=== PATIENT | male | born 1955 | race Caucasian/White ===

== ENCOUNTER 2019-09-10 06:55 | Emergency (ER) | payer MEDICAID ==
[~2019-09-10] VITALS: Ht 185.4 cm; Wt 50.6 kg
[~2019-09-10 06:55] MED LIST: NO HOME MEDS; PERM60CR4 TP; TRAM50TA2 PO
[2019-09-10 06:58] VITALS: BP 128/67
[2019-09-10] MEDS ORDERED: diphenhydrAMINE 25mg capsule PO ONE (07:10)
[2019-09-10] MEDS ORDERED: PERM60CR19 TP (07:12)
[2019-09-10] MEDS ORDERED: PRED20TA PO (07:12)
[2019-09-10] MEDS ORDERED: DIPH25CA83 PO (07:16)
== END 2019-09-10 07:39 | disposition home or self-care (01) ==
LOC: ER 06:56
DX: B89 Unspecified parasitic disease (principal); I25.10 Atherosclerotic heart disease of native coronary artery without angina pectoris; I25.2 Old myocardial infarction; F12.90 Cannabis use, unspecified, uncomplicated; F10.99 Alcohol use, unspecified with unspecified alcohol-induced disorder; Z60.2 Problems related to living alone; Z59.0 Homelessness; Z98.890 Other specified postprocedural states; Z79.899 Other long term (current) drug therapy; Y90.9 Presence of alcohol in blood, level not specified
CPT/HCPCS: 99283; Q0163

== ENCOUNTER 2019-10-12 05:06 | Emergency (ER) | payer MEDICAID ==
[~2019-10-12] VITALS: Ht 185.4 cm; Wt 72.7 kg
[~2019-10-12 05:06] MED LIST changes: +DIPH25CA83 PO
[2019-10-12 05:14] VITALS: BP 142/82
[2019-10-12] MEDS ORDERED: diphenhydrAMINE 25mg capsule PO ONE (05:15)
[2019-10-12] MEDS ORDERED: DOXY100C43 PO (05:17)
[2019-10-12] MEDS ORDERED: PERM60CR4 TOP (05:17)
[2019-10-12] MEDS ORDERED: ALBU8.5H8 IH (05:17)
== END 2019-10-12 05:29 | disposition home or self-care (01) ==
LOC: ER 05:07
DX: S30.861A Insect bite (nonvenomous) of abdominal wall, initial encounter (principal); S20.369A Insect bite (nonvenomous) of unspecified front wall of thorax, initial encounter; S60.562A Insect bite (nonvenomous) of left hand, initial encounter; S60.561A Insect bite (nonvenomous) of right hand, initial encounter; J20.9 Acute bronchitis, unspecified; I25.10 Atherosclerotic heart disease of native coronary artery without angina pectoris; I25.2 Old myocardial infarction; F12.90 Cannabis use, unspecified, uncomplicated; Z60.2 Problems related to living alone; Z59.0 Homelessness; Z98.890 Other specified postprocedural states; Z72.89 Other problems related to lifestyle; Z79.899 Other long term (current) drug therapy; W57.XXXA Bitten or stung by nonvenomous insect and other nonvenomous arthropods, initial encounter; Y93.89 Activity, other specified; Y92.89 Other specified places as the place of occurrence of the external cause; Y99.8 Other external cause status
CPT/HCPCS: 99283; Q0163

== ENCOUNTER 2023-08-13 12:14 | Inpatient (IN) | payer MEDICARE, MEDICAID ==
[~2023-08-13] VITALS: Ht 185.4 cm; Wt 75.0 kg
[~2023-08-13 12:14] MED LIST changes: +ALBU8.5H17 IH; +PERM60CR4 TOP
[2023-08-13] MEDS ORDERED: ondansetron 4mg rapidly disintigrating tab PO ONE (14:50)
[2023-08-13] MEDS ORDERED: azithromycin/NS 500mg/250ml 250 ML IV STA (15:34)
[2023-08-13] MEDS ORDERED: CefTRIAXone 2gm/D5W 50ml BAG 50 ML IV ONE (15:35)
[2023-08-13] MEDS ORDERED: normal saline 1000ML IV soln IVB ONE (15:35)
[2023-08-13] MEDS ORDERED: acetaminophen 325mg tablet PO ONE (15:40)
[2023-08-13] MEDS ORDERED: magnesium 2GM in 50ml NS 50 ML IV ONE (16:40)
[2023-08-13 17:03] LABS: BASOPHILS % (AUTO) 0.1 % (0-1); EOSINOPHILS % (AUTO) 0 % (0-6); LYMPHOCYTES # (AUTO) 0.4 X10'3 (1.1-4.8); MEAN CORPUSCULAR VOLUME 93.5 FL (78-98); MEAN PLATELET VOLUME 7.6 FL (7.4-10.4)
[2023-08-13 17:04] LABS: HEMATOCRIT 39.3 % (42.0-52.0); HEMOGLOBIN 12.6 g/dl (14.0-17.9); LYMPHOCYTES % (AUTO) 1.8 % (21-51); MEAN CORPUSCULAR HEMOGLOBIN 29.9 PG (27.0-31.0); MONOCYTES # (AUTO) 0.4 X10'3 (0-0.9); NEUTROPHILS # (AUTO) 20.7 X10'3 (1.8-7.7); NEUTROPHILS % (AUTO) 96.1 % (42-75); PLATELET COUNT 252 X10'3 (140-440); WHITE BLOOD COUNT 21.5 X10'3 (4.5-11.0)
[2023-08-13 17:06] LABS: ALANINE AMINOTRANSFERASE 12 U/L (12-78); ALBUMIN 1.9 G/DL (3.4-5.0); ALBUMIN/GLOBULIN RATIO 0.5 (1.1-1.5); ALKALINE PHOSPHATASE 56 IU/L (46-116); ANION GAP 7 (8-16); ASPARTATE AMINO TRANSFERASE 15 U/L (10-37); BILIRUBIN,TOTAL 0.4 MG/DL (0.1-1.0); BLOOD UREA NITROGEN 48 MG/DL (7-18); BUN/CREATININE RATIO 21.1 (10.0-20.0); CHLORIDE 100 MMOL/L (99-107); CREATININE 2.27 MG/DL (0.60-1.10); GLUCOSE 121 MG/DL (70-104); POTASSIUM 4.3 MMOL/L (3.5-5.1); SODIUM 135 MMOL/L (135-145); TOTAL CARBON DIOXIDE 27.9 MMOL/L (24-32); TOTAL PROTEIN 5.7 G/DL (6.4-8.2); eCRCL 34 ML/MIN; eGFR 29 ML/MIN
[2023-08-13 17:12] LABS: MAGNESIUM 1.9 MG/DL (1.5-2.4); PRO BRAIN NATRIURETIC PEPTIDE 2122 PG/ML (0-125)
[2023-08-13 17:35] LABS: TOTAL CELLS COUNTED 100
[2023-08-13] MEDS ORDERED: apixaban 2.5mg tablet PO SCH (17:35)
[2023-08-13] MEDS ORDERED: diltiazem 30mg tablet PO ONE (17:35)
[2023-08-13] MEDS ORDERED: diltiazem 5mg/ml 5ml inj. IV ONE (17:35)
[2023-08-13 17:37] LABS: ANISOCYTOSIS 1+; PLATELET ESTIMATE NORMAL
[2023-08-13] MEDS ORDERED: magnesium hydroxide 30ml (MOM) UD suspension PO PRN (18:05)
[2023-08-13] MEDS ORDERED: potassium Cl 20 mEq SR tablet PO PRN ×2 (18:05)
[2023-08-13] MEDS ORDERED: HYDROmorphone inj. 0.5 MG/0.5 ML DISP.SYRIN IV PRN (18:05)
[2023-08-13] MEDS ORDERED: ondansetron/PF 4mg/2ml inj IV PRN (18:05)
[2023-08-13] MEDS ORDERED: potassium Cl 40MEQ/1/2NS 520ml 520 ML IV PRN (18:05)
[2023-08-13] MEDS ORDERED: mag hydrox/Alum hydrox/simeth 30ml oral suspension PO PRN (18:05)
[2023-08-13] MEDS ORDERED: HYDROmorphone/PF 0.2 MG/ML SYRINGE IV PRN (18:05)
[2023-08-13] MEDS ORDERED: magnesium 2GM in 50ml NS 50 ML IV PRN (18:05)
[2023-08-13] MEDS ORDERED: acetaminophen 325mg tablet PO PRN ×2 (18:05)
[2023-08-13] MEDS ORDERED: magnesium Cl slow-release 64mg tablet PO PRN (18:05)
[2023-08-13] MEDS ORDERED: HYDROcodone/acetaminophen 5mg/325mg tablet PO PRN (18:05)
[2023-08-13] MEDS ORDERED: magnesium 4gm in 100ml NS 100 ML IV PRN (18:05)
[2023-08-13] MEDS ORDERED: ondansetron 4mg rapidly disintigrating tab PO PRN (18:05)
[2023-08-13] MEDS ORDERED: diltiazem-D5W 125mg/125ml 125 ML IV SCH ×2 (18:05→18:25)
[2023-08-13] MEDS ORDERED: diltiazem-NS 100mg/100ml 125 ML IV SCH (18:25)
[2023-08-13] MEDS ORDERED: LORazepam 1 MG tablet PO PRN (18:45)
[2023-08-13] MEDS ORDERED: nicotine 21mg patch - 24 hr TD ONE (18:45)
[2023-08-13 19:02] LABS: APTT 39 SECONDS (22-32); INR 1.1 INR
[2023-08-13 19:10] LABS: CHOLESTEROL 83 MG/DL (0-200); HDL CHOLESTEROL 41 MG/DL (35-60); LDL CHOLESTEROL 15 MG/DL (50-100); THYROID STIMULATING HORMONE 2.68 ulU/ml (0.34-4.50); TRIGLYCERIDES 41 MG/DL (20-135)
[2023-08-13] MEDS: docusate sod 100mg capsule PO SCH (20:00)
[2023-08-13] MEDS: K and/or MAG REPLACEMENT MC SCH (20:00)
[2023-08-13] MEDS ORDERED: temazepam 15mg capsule PO PRN (21:00)
[2023-08-14] VITALS (12 sets, daily range): BP systolic 96–149; BP diastolic 51–88; PULSE 86–155; RESP 14–23; TEMP 97.8–98.6; O2SAT 94–100
[2023-08-14] MEDS ORDERED: diltiazem 5mg/ml 5ml inj. IV ONE ×2 (01:05→08:10)
[2023-08-14] MEDS ORDERED: apixaban 5mg tablet PO SCH (08:00)
[2023-08-14] MEDS ORDERED: enoxaparin 80mg/0.8ml syringe SUBCUT SCH (08:00)
[2023-08-14] MEDS: K and/or MAG REPLACEMENT MC SCH ×2 (08:00→19:01)
[2023-08-14 08:15] LABS: HEMOGLOBIN 12.4 g/dl (14.0-17.9); LYMPHOCYTES # (AUTO) 0.5 X10'3 (1.1-4.8); LYMPHOCYTES % (AUTO) 2.7 % (21-51); MONOCYTES # (AUTO) 0.4 X10'3 (0-0.9)
[2023-08-14 08:18] LABS: BASOPHILS % (AUTO) 0.2 % (0-1); EOSINOPHILS % (AUTO) 0.2 % (0-6); HEMATOCRIT 37.3 % (42.0-52.0); MEAN CORPUSCULAR HEMOGLOBIN 30.9 PG (27.0-31.0); MEAN CORPUSCULAR HGB CONC 33.1 g/dL (33.0-36.5); MEAN CORPUSCULAR VOLUME 93.2 FL (78-98); MEAN PLATELET VOLUME 8.3 FL (7.4-10.4); MONOCYTES % (AUTO) 1.9 % (2-12); NEUTROPHILS # (AUTO) 18.8 X10'3 (1.8-7.7); PLATELET COUNT 239 X10'3 (140-440); WHITE BLOOD COUNT 19.8 X10'3 (4.5-11.0)
[2023-08-14 08:21] LABS: ALANINE AMINOTRANSFERASE 13 U/L (12-78); ALBUMIN 1.9 G/DL (3.4-5.0); ALBUMIN/GLOBULIN RATIO 0.5 (1.1-1.5); ALKALINE PHOSPHATASE 86 IU/L (46-116); ANION GAP 6 (8-16); ASPARTATE AMINO TRANSFERASE 17 U/L (10-37); BILIRUBIN,TOTAL 0.4 MG/DL (0.1-1.0); BLOOD UREA NITROGEN 41 MG/DL (7-18); CALCIUM 8.5 MG/DL (8.5-10.1); CHLORIDE 102 MMOL/L (99-107); CREATININE 1.52 MG/DL (0.60-1.10); GLUCOSE 158 MG/DL (70-104); MAGNESIUM 2.6 MG/DL (1.5-2.4); POTASSIUM 3.9 MMOL/L (3.5-5.1); SODIUM 134 MMOL/L (135-145); TOTAL CARBON DIOXIDE 25.6 MMOL/L (24-32); TOTAL PROTEIN 6.1 G/DL (6.4-8.2); eCRCL 50 ML/MIN; eGFR 46 ML/MIN
[2023-08-14] MEDS: azithromycin/NS 500mg/250ml 250 ML IV SCH (09:27)
[2023-08-14] MEDS: docusate sod 100mg capsule PO SCH ×2 (09:27→19:00)
[2023-08-14] MEDS: CefTRIAXone/D5W-Rocephin 1gm 50 ML IV SCH (09:27)
[2023-08-14] MEDS: nicotine 21mg patch - 24 hr TD SCH (09:28)
[2023-08-14] MEDS: enoxaparin 30mg/0.3ml syringe SUBCUT SCH ×2 (09:28→19:00)
[2023-08-14] MEDS: diltiazem 30mg tablet PO SCH ×2 (09:29→13:36)
[2023-08-14] MEDS: enoxaparin 40mg/0.4ml syringe SQ SCH ×2 (09:29→19:01)
[2023-08-14 10:03] LABS: BILIRUBIN,URINE NEGATIVE (Neg); CLARITY,URINE SLIGHTLY CLOUDY (Clear); COLOR,URINE YELLOW (Yellow); GLUCOSE, URINE NEGATIVE (Neg); KETONES,URINE NEGATIVE (Neg); LEUKOCYTE ESTERASE ,URINE NEGATIVE (Neg); NITRITES, URINE NEGATIVE (Neg); OCCULT BLOOD,URINE TRACE-INTACT (Neg); PH,URINE 5.5 (4.8-8.0); PROTEIN,URINE TRACE mg/dl (Neg); UROBILINOGEN,URINE 0.2 E.U/dL (0.2-1.0)
[2023-08-14 10:19] LABS: UA COLLECTION TYPE CLN CATCH MIDSTREAM
[2023-08-14 10:36] LABS: TOTAL PROTEIN,URINE RANDOM 53.3 MG/DL
[2023-08-14 10:38] LABS: URIC ACID CRYSTALS 3+ /HPF (NEGATIVE)
[2023-08-14 10:44] LABS: BACTERIA,URINE 1+ /HPF (Neg); RBC,URINE 0-2 /HPF (0-2)
[2023-08-14 10:46] LABS: SQUAMOUS EPITHELIAL CELL,UR FEW /LPF (FEW)
[2023-08-14 10:48] LABS: TRANSITIONAL EPI CELLS,URINE FEW /HPF
[2023-08-14 10:49] LABS: MUCUS STRANDS FEW /LPF (Neg)
[2023-08-14 11:02] LABS: COARSE GRANULAR CAST 0-3 /LPF (NEGATIVE); FINE GRANULAR CAST 0-3 /LPF (NEGATIVE)
[2023-08-14] MEDS: HYDROcodone/acetaminophen 10/325mg tab PO PRN ×2 (11:18→18:49)
[2023-08-14 11:22] LABS: UA EOSINOPHILS NO EOS /HPF
[2023-08-14] MEDS ORDERED: diltiazem 30mg tablet PO SCH (20:00)
[2023-08-14] MEDS ORDERED: diltiazem-NS 100mg/100ml 100 ML IV SCH (22:40)
[2023-08-15] VITALS (18 sets, daily range): BP systolic 97–136; BP diastolic 57–89; PULSE 80–124; RESP 16–26; TEMP 97.6–98.2; O2SAT 90–97
[2023-08-15] MEDS: diltiazem-NS 100mg/100ml 100 ML IV SCH ×2 (00:31→13:45)
[2023-08-15] MEDS: azithromycin/NS 500mg/250ml 250 ML IV SCH (07:53)
[2023-08-15] MEDS: docusate sod 100mg capsule PO SCH ×2 (07:53→20:00)
[2023-08-15] MEDS: CefTRIAXone/D5W-Rocephin 1gm 50 ML IV SCH (07:53)
[2023-08-15] MEDS: enoxaparin 30mg/0.3ml syringe SUBCUT SCH ×2 (07:54→22:35)
[2023-08-15] MEDS: nicotine 21mg patch - 24 hr TD SCH (07:54)
[2023-08-15] MEDS: enoxaparin 40mg/0.4ml syringe SQ SCH ×2 (07:54→22:34)
[2023-08-15] MEDS: K and/or MAG REPLACEMENT MC SCH ×2 (08:00→18:37)
[2023-08-15 08:29] LABS: BASOPHILS % (AUTO) 0.1 % (0-1); EOSINOPHILS # (AUTO) 0.1 X10'3 (0-0.9); EOSINOPHILS % (AUTO) 0.6 % (0-6); HEMOGLOBIN 11.4 g/dl (14.0-17.9); LYMPHOCYTES # (AUTO) 0.7 X10'3 (1.1-4.8); LYMPHOCYTES % (AUTO) 4.8 % (21-51); MEAN CORPUSCULAR HEMOGLOBIN 30.6 PG (27.0-31.0); MEAN CORPUSCULAR HGB CONC 32.7 g/dL (33.0-36.5); MEAN CORPUSCULAR VOLUME 93.3 FL (78-98); MONOCYTES % (AUTO) 6.5 % (2-12); NEUTROPHILS # (AUTO) 13.2 X10'3 (1.8-7.7); PLATELET COUNT 225 X10'3 (140-440); RED BLOOD COUNT 3.75 X10'6 (4.70-6.10); RED CELL DISTRIBUTION WIDTH 17.5 % (11.5-14.5); WHITE BLOOD COUNT 15.1 X10'3 (4.5-11.0)
[2023-08-15 08:45] LABS: ALANINE AMINOTRANSFERASE 15 U/L (12-78); ALBUMIN 1.8 G/DL (3.4-5.0); ALBUMIN/GLOBULIN RATIO 0.4 (1.1-1.5); ALKALINE PHOSPHATASE 83 IU/L (46-116); ANION GAP 5 (8-16); ASPARTATE AMINO TRANSFERASE 17 U/L (10-37); BILIRUBIN,TOTAL 0.2 MG/DL (0.1-1.0); BLOOD UREA NITROGEN 30 MG/DL (7-18); BUN/CREATININE RATIO 27.8 (10.0-20.0); CALCIUM 8.7 MG/DL (8.5-10.1); CHLORIDE 101 MMOL/L (99-107); CREATININE 1.08 MG/DL (0.60-1.10); GLUCOSE 129 MG/DL (70-104); MAGNESIUM 2.1 MG/DL (1.5-2.4); SODIUM 135 MMOL/L (135-145); TOTAL CARBON DIOXIDE 28.7 MMOL/L (24-32); TOTAL PROTEIN 6.1 G/DL (6.4-8.2); eCRCL 70 ML/MIN; eGFR 68 ML/MIN
[2023-08-16] VITALS (11 sets, daily range): BP systolic 105–137; BP diastolic 57–71; PULSE 3–102; RESP 18–23; TEMP 97.6–99.3; O2SAT 92–99
[2023-08-16] MEDS: diltiazem-NS 100mg/100ml 100 ML IV SCH (00:39)
[2023-08-16 07:43] LABS: ALANINE AMINOTRANSFERASE 25 U/L (12-78); ALBUMIN 1.8 G/DL (3.4-5.0); ALBUMIN/GLOBULIN RATIO 0.4 (1.1-1.5); ALKALINE PHOSPHATASE 55 IU/L (46-116); ANION GAP 4 (8-16); ASPARTATE AMINO TRANSFERASE 29 U/L (10-37); BILIRUBIN,TOTAL 0.4 MG/DL (0.1-1.0); BLOOD UREA NITROGEN 20 MG/DL (7-18); BUN/CREATININE RATIO 24.7 (10.0-20.0); CALCIUM 8.7 MG/DL (8.5-10.1); CHLORIDE 101 MMOL/L (99-107); CREATININE 0.81 MG/DL (0.60-1.10); GLUCOSE 95 MG/DL (70-104); MAGNESIUM 1.6 MG/DL (1.5-2.4); POTASSIUM 3.9 MMOL/L (3.5-5.1); SODIUM 136 MMOL/L (135-145); TOTAL CARBON DIOXIDE 30.7 MMOL/L (24-32); TOTAL PROTEIN 6.1 G/DL (6.4-8.2); eCRCL 94 ML/MIN; eGFR > 90 ML/MIN
[2023-08-16] MEDS: CefTRIAXone/D5W-Rocephin 1gm 50 ML IV SCH (07:45)
[2023-08-16] MEDS: azithromycin/NS 500mg/250ml 250 ML IV SCH (07:45)
[2023-08-16] MEDS: enoxaparin 40mg/0.4ml syringe SQ SCH (07:46)
[2023-08-16] MEDS: enoxaparin 30mg/0.3ml syringe SUBCUT SCH (07:46)
[2023-08-16] MEDS: nicotine 21mg patch - 24 hr TD SCH (07:46)
[2023-08-16 07:47] LABS: BASOPHILS % (AUTO) 0.4 % (0-1); EOSINOPHILS # (AUTO) 0.1 X10'3 (0-0.9); EOSINOPHILS % (AUTO) 1.1 % (0-6); HEMATOCRIT 33.7 % (42.0-52.0); HEMOGLOBIN 11.4 g/dl (14.0-17.9); LYMPHOCYTES # (AUTO) 0.9 X10'3 (1.1-4.8); LYMPHOCYTES % (AUTO) 11.7 % (21-51); MEAN CORPUSCULAR HEMOGLOBIN 31.4 PG (27.0-31.0); MEAN CORPUSCULAR HGB CONC 33.9 g/dL (33.0-36.5); MEAN CORPUSCULAR VOLUME 92.7 FL (78-98); MEAN PLATELET VOLUME 7.5 FL (7.4-10.4); MONOCYTES # (AUTO) 1.1 X10'3 (0-0.9); MONOCYTES % (AUTO) 13.8 % (2-12); NEUTROPHILS # (AUTO) 5.9 X10'3 (1.8-7.7); PLATELET COUNT 225 X10'3 (140-440); RED BLOOD COUNT 3.63 X10'6 (4.70-6.10); RED CELL DISTRIBUTION WIDTH 16.9 % (11.5-14.5)
[2023-08-16] MEDS: docusate sod 100mg capsule PO SCH ×2 (07:47→20:00)
[2023-08-16] MEDS: K and/or MAG REPLACEMENT MC SCH ×2 (08:00→20:00)
[2023-08-16] MEDS ORDERED: diltiazem 30mg tablet PO ONE (08:20)
[2023-08-16] MEDS: diltiazem 30mg tablet PO SCH ×2 (13:46→20:37)
[2023-08-16] MEDS: HYDROcodone/acetaminophen 10/325mg tab PO PRN ×2 (13:46→20:36)
[2023-08-16] MEDS ORDERED: apixaban 5mg tablet PO SCH (20:00)
[2023-08-16] MEDS: apixaban 5mg tablet PO SCH (20:37)
[2023-08-17 02:00] VITALS: BP 133/63; PULSE 78; RESP 17; TEMP 98.8; O2SAT 93
[2023-08-17] MEDS: diltiazem 30mg tablet PO SCH ×2 (02:43→07:59)
[2023-08-17] MEDS: HYDROcodone/acetaminophen 10/325mg tab PO PRN (02:46)
[2023-08-17 06:00] VITALS: BP 171/63; PULSE 64; RESP 18; TEMP 98; O2SAT 95
[2023-08-17 06:29] LABS: BASOPHILS % (AUTO) 0.5 % (0-1); EOSINOPHILS # (AUTO) 0.2 X10'3 (0-0.9); EOSINOPHILS % (AUTO) 2.4 % (0-6); HEMATOCRIT 37.7 % (42.0-52.0); HEMOGLOBIN 12.3 g/dl (14.0-17.9); LYMPHOCYTES # (AUTO) 1.3 X10'3 (1.1-4.8); LYMPHOCYTES % (AUTO) 14.7 % (21-51); MEAN CORPUSCULAR HEMOGLOBIN 30.3 PG (27.0-31.0); MEAN CORPUSCULAR HGB CONC 32.6 g/dL (33.0-36.5); MEAN CORPUSCULAR VOLUME 93.2 FL (78-98); MEAN PLATELET VOLUME 7.5 FL (7.4-10.4); MONOCYTES # (AUTO) 1.5 X10'3 (0-0.9); NEUTROPHILS # (AUTO) 5.6 X10'3 (1.8-7.7); NEUTROPHILS % (AUTO) 65.4 % (42-75); PLATELET COUNT 293 X10'3 (140-440); RED BLOOD COUNT 4.04 X10'6 (4.70-6.10); RED CELL DISTRIBUTION WIDTH 17.9 % (11.5-14.5); WHITE BLOOD COUNT 8.6 X10'3 (4.5-11.0)
[2023-08-17 07:22] LABS: ALANINE AMINOTRANSFERASE 29 U/L (12-78); ALBUMIN 1.9 G/DL (3.4-5.0); ALBUMIN/GLOBULIN RATIO 0.4 (1.1-1.5); ALKALINE PHOSPHATASE 67 IU/L (46-116); ANION GAP 10 (8-16); ASPARTATE AMINO TRANSFERASE 26 U/L (10-37); BILIRUBIN,TOTAL 0.4 MG/DL (0.1-1.0); BLOOD UREA NITROGEN 16 MG/DL (7-18); BUN/CREATININE RATIO 21.1 (10.0-20.0); CALCIUM 9.3 MG/DL (8.5-10.1); CHLORIDE 97 MMOL/L (99-107); CREATININE 0.76 MG/DL (0.60-1.10); GLUCOSE 103 MG/DL (70-104); MAGNESIUM 2.1 MG/DL (1.5-2.4); POTASSIUM 4.2 MMOL/L (3.5-5.1); SODIUM 133 MMOL/L (135-145); TOTAL CARBON DIOXIDE 26.3 MMOL/L (24-32); TOTAL PROTEIN 6.8 G/DL (6.4-8.2); eCRCL 100 ML/MIN; eGFR > 90 ML/MIN
[2023-08-17] MEDS: nicotine 21mg patch - 24 hr TD SCH (07:58)
[2023-08-17] MEDS: docusate sod 100mg capsule PO SCH (07:59)
[2023-08-17] MEDS: K and/or MAG REPLACEMENT MC SCH (08:00)
[2023-08-17] MEDS: apixaban 5mg tablet PO SCH (08:00)
[2023-08-17] MEDS: azithromycin/NS 500mg/250ml 250 ML IV SCH (08:01)
[2023-08-17 08:44] VITALS: RESP 18; O2SAT 95
== END 2023-08-17 10:26 | disposition left against medical advice (07) | DRG 871 ==
LOC: ER 12:15 → ED HOLD 18:10 → EDBEDREQ 20:21 → PCU 3S 23:10
PROVIDERS: ADMIT Family Medicine; ATTEND Family Medicine
DX: A41.9 Sepsis, unspecified organism (principal); E43 Unspecified severe protein-calorie malnutrition; J18.9 Pneumonia, unspecified organism; J44.0 Chronic obstructive pulmonary disease with (acute) lower respiratory infection; N17.9 Acute kidney failure, unspecified; M48.54XA Collapsed vertebra, not elsewhere classified, thoracic region, initial encounter for fracture; Z59.00 Homelessness unspecified; F17.210 Nicotine dependence, cigarettes, uncomplicated; I25.10 Atherosclerotic heart disease of native coronary artery without angina pectoris; G89.29 Other chronic pain; M43.12 Spondylolisthesis, cervical region; F15.90 Other stimulant use, unspecified, uncomplicated; I48.0 Paroxysmal atrial fibrillation; Z53.29 Procedure and treatment not carried out because of patient's decision for other reasons; K40.90 Unilateral inguinal hernia, without obstruction or gangrene, not specified as recurrent; S09.90XA Unspecified injury of head, initial encounter; X58.XXXA Exposure to other specified factors, initial encounter; I25.2 Old myocardial infarction; Z85.820 Personal history of malignant melanoma of skin; Z68.21 Body mass index [BMI] 21.0-21.9, adult; Y93.89 Activity, other specified; Y92.89 Other specified places as the place of occurrence of the external cause; Y99.8 Other external cause status
CPT/HCPCS: 36415; 70450; 71045; 72125; 76770; 80053; 80061; 81001; 82570; 83605; 83735; 83880; 83935; 84133; 84145; 84156; 84300; 84443; 84484; 85007; 85025; 85610; 85730; 87040; 87081; 87207; 93005; 93306; 94760; 96365; 96367; 96375; 97110; 97161; 97530; 99285; G0378; J0456; J0696; J1650; J3475; J3490; J7030; J7040